=== PATIENT | female | born 1995 ===

== ENCOUNTER 2016-07-26 21:24 | Emergency (ER) | payer MEDICAID ==
[~2016-07-26] VITALS: Ht 165.1 cm; Wt 102.1 kg
[~2016-07-26 21:24] MED LIST: IBU100LQ; NYQUIL
[2016-07-26 22:37] LABS: Basophils # (auto) 0.1 uL; Basophils % (auto) 0.7 % (0.0-2.0); DEFINITIVE VIEW TRANSMISSION; Eosinophils # (auto) 0.2 uL; Eosinophils % (auto) 1.7 % (0.0-7.0); Hematocrit 31.6 % (36.0-46.0); Hemoglobin 9.6 g/dL (12.2-16.2); Lymphocytes # (auto) 1.7 uL; Lymphocytes % (auto) 18.6 % (10.0-50.0); Mean Corpuscular Hemoglobin 20.8 pg (28.0-32.0); Mean Corpuscular Hgb Conc. 30.5 g/dL (32.0-36.0); Mean Corpuscular Volume 68.3 fL (80.0-100.0); Mean Platelet Volume 8.4 fL (7.4-10.4); Monocytes # (auto) 0.6 uL; Monocytes % (auto) 7.1 % (0.0-12.0); Neutrophils # (auto) 6.5 uL; Neutrophils % (auto) 71.9 % (37.0-80.0); Platelet Count (auto) 462 10^3/uL (140-450); Red Cell Distribution Width 17.8 % (11.6-16.0); White Blood Cell 9.1 10^3/uL (4.4-10.8)
[2016-07-26 22:41] LABS: INR 1.04 (0.9-1.15); Partial Thromboplastin Time 27.2 sec (22.64-33.71); Prothrombin Time 10.7 sec (9.37-12.3)
[2016-07-26 22:47] LABS: Albumin 3.7 g/dL (3.4-5.0); Amylase 153 U/L (25-115); Anion Gap 10 (5-15); Blood Urea Nitrogen 10 mg/dL (7-18); Calcium 8.6 mg/dL (8.5-10.1); Carbon Dioxide 24 mmol/L (21-32); Chloride 106 mmol/L (98-107); Glucose 101 mg/dL (74-106); Potassium 3.4 mmol/L (3.5-5.1); Sodium 140 mmol/L (136-145)
[2016-07-26 22:50] LABS: Aspartate Aminotransferase 18 U/L (15-37); BUN/Creatinine Ratio 10.5; GFR African American 97 mL/min; GFR Non-African American 81 mL/min
[2016-07-26 22:52] LABS: Alkaline Phosphatase 88 U/L (45-117); Bilirubin, Total < 0.1 mg/dL (0.2-1.0)
[2016-07-26 23:02] LABS: Microcytosis Marked; Platelet Estimate Increased
[2016-07-26 23:03] LABS: Hypochromia Moderate
[2016-07-27] MEDS ORDERED: SODIUM CHLORIDE 0.9% 1,000 ML IV ONE (03:45)
[2016-07-27] MEDS ORDERED: IOHEXOL 300 MG/ML 100ML BOTTLE IJ ONE (04:33)
[2016-07-27 04:39] VITALS: BP 128/84
[2016-07-27 07:17] LABS: Urine Bilirubin Negative (Negative); Urine Blood Negative /uL (Negative); Urine Color Yellow (Yellow); Urine Glucose Normal (Normal); Urine Ketone Negative (Negative); Urine Mucus FEW (None Seen); Urine Nitrite Negative (Negative); Urine RBC <1 /hpf (0 - 4); Urine Squamous Epithelial Cell FEW /hpf (<5); Urine Urobilinogen Normal (Negative); Urine pH 6.5 (5.0-8.0)
== END 2016-07-27 06:11 | disposition home or self-care (01) ==
LOC: ER 21:30
DX: R10.9 Unspecified abdominal pain (principal); F12.10 Cannabis abuse, uncomplicated
CPT/HCPCS: 36415; 74177; 80053; 81001; 81025; 82150; 83690; 84702; 85025; 85610; 85730; 96360; 99285; J7030; Q9967

== ENCOUNTER 2017-06-04 19:35 | Emergency (ER) | payer MEDICAID, OTHER ==
[~2017-06-04] VITALS: Ht 172.7 cm; Wt 90.7 kg
[~2017-06-04 19:35] MED LIST changes: -IBU100LQ; +IBUP100S11
[2017-06-04] MEDS ORDERED: OXYMETAZOLINE HCL 0.05 % NASAL SPRAY 15ML ONE ×2 (19:40→20:00)
[2017-06-04 22:19] VITALS: BP 129/87
== END 2017-06-04 22:51 | disposition home or self-care (01) ==
LOC: EDBD 19:35 → ER 19:35
DX: J03.90 Acute tonsillitis, unspecified (principal); R04.0 Epistaxis

== ENCOUNTER 2021-01-12 16:52 | Emergency (ER) | payer MEDICAID ==
[~2021-01-12] VITALS: Ht 167.6 cm; Wt 90.7 kg
[2021-01-12 17:57] VITALS: BP 133/83
[2021-01-12 18:36] LABS: Basophils # (auto) 0.1 10 ^3/uL (0-0.2); Eosinophils # (auto) 0.3 10 ^3/uL (0-0.8); Hematocrit 36.3 % (36.0-46.0); Monocytes # (auto) 0.5 10 ^3/uL (0-1.3)
[2021-01-12 18:38] LABS: Basophils % (auto) 0.8 % (0.0-2.0); Eosinophils % (auto) 2.7 % (0.0-7.0); Hemoglobin 11.7 g/dL (12.2-16.2); Lymphocytes # (auto) 1.7 10 ^3/uL (0.4-5.4); Lymphocytes % (auto) 16.5 % (10.0-50.0); Mean Corpuscular Hemoglobin 25.1 pg (28.0-32.0); Mean Corpuscular Hgb Conc. 32.3 g/dL (32.0-36.0); Mean Corpuscular Volume 77.8 fL (80.0-100.0); Monocytes % (auto) 4.9 % (0.0-12.0); Neutrophils # (auto) 7.8 10 ^3/uL (1.6-8.6); Neutrophils % (auto) 75.1 % (37.0-80.0); Red Blood Cells 4.66 10^6/uL (4.0-5.20); White Blood Cell 10.4 10^3/uL (4.4-10.8)
== END 2021-01-13 00:13 | disposition left against medical advice (07) ==
LOC: EDBD 16:52 → ER 16:52
DX: N93.9 Abnormal uterine and vaginal bleeding, unspecified (principal); Z53.21 Procedure and treatment not carried out due to patient leaving prior to being seen by health care provider
CPT/HCPCS: 36415; 84702; 85025